=== PATIENT | female | born 1955 | race Hispanic/Latino ===

== ENCOUNTER → 2018-07-17 | Outpatient (CLI) | payer OTHER | END | disposition home or self-care (01) | LOC: RAH 14:38 | PROVIDERS: ATTEND Obstetrics & Gynecology | DX: Z12.31 Encounter for screening mammogram for malignant neoplasm of breast (principal) | CPT/HCPCS: 77067 ==

== ENCOUNTER 2018-12-03 14:04 | Emergency (ER) | payer OTHER ==
[2018-12-03] MEDS ORDERED: KETOROLAC TROMETHAMINE 60 MG/2 ML VIAL ONE (14:28)
== END 2018-12-03 15:33 | disposition home or self-care (01) ==
LOC: EDH 14:04
DX: S39.012A Strain of muscle, fascia and tendon of lower back, initial encounter (principal); Z98.890 Other specified postprocedural states; E07.9 Disorder of thyroid, unspecified; W01.0XXA Fall on same level from slipping, tripping and stumbling without subsequent striking against object, initial encounter; Y93.89 Activity, other specified; Y92.89 Other specified places as the place of occurrence of the external cause; Y99.8 Other external cause status
CPT/HCPCS: 96372; 99283; J1885